=== PATIENT | male | born 1975 | race Caucasian/White ===

== ENCOUNTER 2018-10-16 14:53 | Observation (INO) | payer OTHER, SELFPAY ==
--- NOTE | 2018-10-16 18:01 | PDOC.FPRHP ---
- History of Present Illness Chief Complaint: Exposure History of Present Illness: Mr. 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 He began walking and felt dizzy so sat down and was attended to by other employees. The only chemical he knows that is in the washing machine is chlorine, he does not believe this was in the air he inhaled. he has had no additional symptoms since this episode. transferred from outside ED to [facility] ED Course: CBC, CMP, CK, CXR outside ER: mag, duoneb, solumedrol ASA SJER: Duoneb - Allergies/Adverse Reactions Allergies Allergy/AdvReac Type Severity Reaction Status Date / Time succinylcholine Allergy Severe Verified 10/17/18 05:40 Penicillins Allergy Unknown Verified 10/17/18 05:40 - Home Medications Medication Instructions Recorded Confirmed Type No Known 10/17/18 10/17/18 History - History PMHx: none PSHx: Appendectomy, umbilical hernia repair FHx: CML, COPD Social: 10 pack year smoking history, current smokeless tobacco user - Review of Systems General: denies: fever/chills, weight/appetite/sleep changes Eyes: denies: eye pain, vision changes ENT: denies: nasal congestion, rhinorrhea Respiratory: reports: shortness of breath. denies: cough, congestion Cardiovascular: reports: chest pain. denies: palpitation, edema Gastrointestinal: denies: nausea, vomiting, diarrhea Skin: denies: rashes, lesions Musculoskeletal: reports: pain, tenderness Neurological: denies: numbness, syncope - Vital signs BP: 110/57 HR: 88 RR: 20 Tmax: 98.2 Pox: 97% on 3L Wt: 117.93kg - Physical Exam Constitutional: NAD HEENT: normocephalic and atraumatic, grossly normal vision, grossly normal hearing, MMM Neck: supple, trachea midline Chest: no-tender to palpation Heart: RRR, normal S1/S2, no murmurs/rubs/gallops Lungs: CTAB, no respiratory distress, good air movement Abdomen: soft, non-tender, bowel sounds present Musculoskeletal: normal structure, ROM grossly normal Neurological: no focal deficit Skin: no rash/lesions, good turgor Heme/Lymphatic: no unusual bruising or bleeding Psychiatric: normal mood and affect FMR H&P: Results - Labs Result Diagrams: 10/17/18 04:05 10/17/18 04:05 FMR H&P: A/P - Problem List (1) Chlorine gas exposure Current Visit: Yes Status: Acute Code(s): Z77.098 - CONTACT W AND EXPSR TO OTH HAZARD, CHIEFLY NONMED, CHEMICALS (2) Elevated CK Current Visit: Yes Status: Acute (3) Musculoskeletal pain Current Visit: Yes Status: Acute Code(s): M79.18 - [place], OTHER SITE - Plan Chlorine gas exposure - possible, but unlikely, contact poison control - encourage PO hydration - s/p oral steroids and duonebs - duonebs prn for SOB - continuous O2 monitoring, O2 prn for saturation below 92% Elevated CK - mildly elevated at 227 on admission - monitor, recheck in AM Musculoskeletal pain - hx of pain 2/2 injuries - ibuprofen PRN Code: full ppx: lovenox Disposition/LOS: observation on medical, contact poison control for further information FMR H&P: Upper Level - Pertinent history 43 y/o M presents for SOB. States he was working today and inhaled gas while using the washing machine. The machine is set up to have oxygen and chlorine for the washing. He is unsure if chlorine was in the gas but cannot rule it out. He became immediately SOB and felt lightheaded and co-workers called EMS. States he has slight chest pain on L side with deep inspirations. Does also admit to feeling much better since arriving into the ED. - Pertinent findings Physical Exam: GEN: NAD lying in hospital bed CARDIO: RRR, No MRG LUNGS: CTAB, No wheezes, rales, ronchi, no chest ttp NEURO: Alert and oriented x4, no focal deficits, strength and sensation preserved in all extremities. GI: no ttp. No R/G RECTAL: No fissures/hemorrhoids observed. Blood in rectal vault is red and runs down legs. MSK: No LE edema - Plan Date/Time: 10/16/18 [id number] Augustine Perez, have evaluated this patient and agree with findings/plan as outlined by contracts intern resident. Pertinent changes/additions are listed here. Assessment/Plan: 1. Pneumonitis 2/2 possible Chlorine gas exposure. CXR WNL and VSS on 2L O2. Has some pleuritic chest pain we will give NSAIDS for. No s/s of respiratory distress. Will monitor overnight per poison control. 2. Hx/o LE surgery and pain: no acute issues DISPO: Anticipate discharge in 1-2 days LMWH for DVT ppx Attending Addendum - Attending Addendum Date/Time: 10/17/18 0708 I personally evaluated the patient and discussed the management with Dr. French and Dr Lara yesterday evening. I agree with the History, Examination, Assessment and Plan documented above with any addition or exceptions noted below.
--- NOTE | 2018-10-16 20:54 | PDOC.EVN ---
Event Note - Event Note Event Note: Date/Time: 10/16/182052 I personally evaluated the patient and discussed the management with Dr. Lara and Dr French. I agree with the History, Examination, Assessment and Plan as discussed. H&P pending.
[2018-10-17] MEDS ORDERED: Sodium Chloride 0.9% 1,000 ML IV SCH (01:00)
[2018-10-17] MEDS ORDERED: Ibuprofen 600 MG TAB PO PRN (02:14)
[2018-10-17 02:57] VITALS: BMI 37.3
[2018-10-17] MEDS: traMADol HCl 50 MG TAB PO SCH ×2 (04:58→08:37)
[2018-10-17 05:00] LABS: #Lymphocytes 1.2 thou/uL (1.20-3.40); #Neutrophils 8.8 thou/uL (1.40-6.50); %Basophils 0.1 % (0.0-1.0); %Eosinophils 0.2 % (0.0-10.0); %Lymphocytes 11.1 % (21.0-51.0); %Monocytes 9.1 % (0.0-10.0); %Neutrophils 79.6 % (42.0-75.0); Hemoglobin 14.4 g/dL (14.0-18.0); Mean Corpuscular HGB CONC 34.3 g/dL (32.0-36.0); Mean Corpuscular Volume 96.1 fL (78.0-98.0); Mean Platelet Volume 7.4 fL (7.4-10.4); Platelet Count 314 thou/uL (130-400); RBC Distribution Width 12.7 % (11.5-14.5); Red Blood Cell (RBC) Count 4.35 mill/uL (4.70-6.10)
[2018-10-17 05:19] LABS: ALT (SGPT) 19 U/L (8-55); AST (SGOT) 13 U/L (5-34); Albumin 3.9 g/dL (3.5-5.0); Alkaline Phosphatase 63 U/L (40-150); Anion Gap 11 mmol/L (10-20); BUN (Urea Nitrogen) 10 mg/dL (8.9-20.6); Bilirubin, Total 0.7 mg/dL (0.2-1.2); CK (CPK) 138 U/L (30-200); Calc. Creatinine Clearance 179 mL/min (70-130); Calcium 9.3 mg/dL (7.8-10.44); Carbon Dioxide 26 mmol/L (22-29); Chloride 106 mmol/L (98-107); Estimated GFR-MDRD 90; Glucose 141 mg/dL (70-105); Potassium 4.1 mmol/L (3.5-5.1); Protein, Total 6.9 g/dL (6.0-8.3); Sodium 139 mmol/L (136-145)
--- NOTE | 2018-10-17 05:40 | PDOC.FM ---
- Subjective Subjective: Pt states he did well overnight. He did complain of some back pain but believes it is from being cramped. He denies SOB, chest pain, nausea, or vomiting. He did report that the machine he works with was an [place] machine which fits the story better. - Objective MAR Reviewed: Yes Vital Signs & Weight: Vital Signs (12 hours) Temp Pulse Resp BP Pulse Ox 10/17/18 02:58 97.9 F 59 L 20 108/55 L 96 10/17/18 01:54 98.1 F 70 22 H 118/62 94 L Weight Weight 121.291 kg I&O: 10/15/18 10/16/18 10/17/18 06:59 06:59 06:59 Intake Total 102 Balance 102 Result Diagrams: 10/17/18 04:05 10/17/18 04:05 <Stephane Gonzales - Last Filed: 10/17/18 08:24> - Objective Vital Signs & Weight: Vital Signs (12 hours) Temp Pulse Resp BP Pulse Ox 10/17/18 08:08 96 10/17/18 07:32 98.2 F 61 18 126/67 95 10/17/18 02:58 97.9 F 59 L 20 108/55 L 96 10/17/18 01:54 98.1 F 70 22 H 118/62 94 L Weight Weight 121.291 kg I&O: 10/16/18 10/17/18 10/18/18 06:59 06:59 06:59 Intake Total 392 Output Total 300 Balance 92 Result Diagrams: 10/17/18 04:05 10/17/18 04:05 <Natanael Aguilar - Last Filed: 10/17/18 10:24> Phys Exam - Physical Examination Constitutional: NAD HEENT: moist MMs Neck: full ROM Respiratory: no wheezing, clear to auscultation bilateral Cardiovascular: RRR, no significant murmur Gastrointestinal: soft, non-tender, no distention, positive bowel sounds Musculoskeletal: no edema, pulses present Neurological: moves all 4 limbs Psychiatric: normal affect, A&O x 3 Skin: cap refill <2 seconds <Stephane Gonzales - Last Filed: 10/17/18 08:24> Dx/Plan (1) Chlorine gas exposure Code(s): Z77.098 - CONTACT W AND EXPSR TO OTH HAZARD, CHIEFLY NONMED, CHEMICALS Status: Acute (2) Elevated CK Status: Acute (3) Musculoskeletal pain Code(s): M79.18 - [place], OTHER SITE Status: Acute - Plan Plan: This is a 43 yo otherwise healthy male Possible chlorine gas exposure vs. [place] exposure -Poison control contacted yesterday -Encourage PO fluids -Duonebs PRN for SOB -Pt has improving O2 sats and respiratory status Elevated CK, resolved MSK pain 2/2 previous injuries -Ibuprofen PRN and tramadol HARJINDER Pt will likely go home if he continues to improve <Stephane Gonzales - Last Filed: 10/17/18 08:24> Attending Addendum - Attending Addendum Date/Time: 10/17/18 1020 I personally evaluated the patient and discussed the management with Dr. Gonzales I agree with the History, Examination, Assessment and Plan documented above with any addition or exceptions noted below. 43M with possible chemical exposure. Maintaining oxygen saturations overnight on room air. Vital signs have remained normal. Poison control recommends observation. Morning laboratory studies are normal. Discharge home this afternoon. <Natanael Aguilar - Last Filed: 10/17/18 10:24>
[2018-10-17] MEDS ORDERED: Enoxaparin Sodium 40 MG/0.4 ML SYRINGE SC SCH (09:00)
--- NOTE | 2018-10-17 09:10 | RAD ---
PA AND LATERAL CHEST RADIOGRAPH: Date: 10-17-18 History: Follow up evaluation. Dyspnea. Comparison: 10-16-18 FINDINGS: There has been interval development of patchy increased density in the left midlung zone compared to the prior study which could be related to either atelectasis or developing area of pneumonitis. Faint nodular density overlies the lateral right midlung zone. Lungs are otherwise clear. Cardiac silhouet te is at the upper limits of normal. Pulmonary vasculature is within normal limits. IMPRESSION: 1. Faint nodular density projecting over the lateral right midlung zone with associated linear densit ies. This could be related to an area of mild scarring, but short interval follow up examination is r ecommended. 2. Interval development of patchy density in the left midlung zone which could be related to either a telectasis or developing area of pneumonitis. Follow up to resolution is recommended. POS: JUANA
[2018-10-17 11:41] VITALS: BP 128/62; TEMP 97.9
--- NOTE | 2018-10-18 15:47 | DIS ---
DATE OF ADMISSION: 10/16/2018 DATE OF DISCHARGE: 10/17/2018 RESIDENT: Stephane Gonzales DO. ADMITTING ATTENDING: Cale Rubio MD DISCHARGE ATTENDING: Natanael Aguilar MD. CONSULTS: None. PROCEDURES PERFORMED: Chest x-ray shows faint nodular density projecting over the with associated linear densities, interval development of patchy densities over the left mid lung. This could relate to either atelectasis or developing area of pneumonitis. PRIMARY DIAGNOSIS: Pneumonitis, likely secondary to chlorine gas exposure or ozone exposure. SECONDARY DIAGNOSIS: Musculoskeletal pain. DISCHARGE MEDICATIONS: Ibuprofen 600 mg p.o. q.6 DISCONTINUED MEDICATIONS: None. BRIEF HISTORY OF PRESENT ILLNESS/HOSPITAL COURSE: This is a 43-year-old male with past medical history as above, who presented to the ER with episodes of shortness of breath at work. 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 The patient states that possibly it could be chlorine, also states that they work with ozone machine leading to those two chemicals is the likely problem. He felt dizzy and had to sit down. The patient was seen in the ER concerned for exposure. On admission, the patient was at 97% on 3L of nasal cannula. The patient tolerated and improved overnight with DuoNeb scheduled and improved respiratory status continued. At the time of discharge the patient had no complaints regarding breathing or chest pain. DISPOSITION: Stable. DISCHARGE INSTRUCTIONS: 1. Location: Home. 2. Diet: Regular. 3. Activity: As tolerated. 4. Follow up with primary care physician in 1 to 2 weeks. Job ID: [id number]
== END 2018-10-17 12:23 | disposition home or self-care (01) ==
LOC: ERS 14:53 → INTOOBSV 17:31 → ERHOLD 17:31 → 2SW 10-17 02:03
PROVIDERS: ADMIT Family Medicine; ATTEND Family Medicine
DX: J18.9 Pneumonia, unspecified organism (principal); R74.8 Abnormal levels of other serum enzymes; M79.10 Myalgia, unspecified site; F17.290 Nicotine dependence, other tobacco product, uncomplicated; Z88.8 Allergy status to other drugs, medicaments and biological substances; Z88.0 Allergy status to penicillin; Z90.49 Acquired absence of other specified parts of digestive tract; Z98.890 Other specified postprocedural states
CPT/HCPCS: 36415; 71046; 80053; 82550; 85025; 94640; 96360; 96372; G0378; J1650; J7620

== ENCOUNTER 2024-04-02 16:33 | Outpatient (CLI) | payer BC ==
[2024-04-02 17:16] LABS: #Basophils 0.06 10x3/uL (0.0-0.2); #Eosinphils 0.32 10x3/uL (0.0-0.5); #Neutrophils 3.31 10x3/uL (1.5-8.4); %Eosinophils 5.3 % (0.0-6.0); %Lymphocytes 28.2 % (18.0-47.0); %Neutrophils 54.8 % (40.0-75.0); Hematocrit 41.7 % (38.8-50.0); Mean Corpuscular HGB CONC 33.6 g/dL (32.0-36.0); Mean Corpuscular Hemoglobin 31.9 pg (27.0-33.0); Mean Platelet Volume 9.9 fl (7.4-10.4); Platelet Count 264 10x3/uL (150-450); RBC Distribution Width 13.7 % (11.5-14.5); Red Blood Cell (RBC) Count 4.39 10x6/uL (4.32-5.72)
[2024-04-02 17:44] LABS: Anion Gap 13 mmol/L (10-20); BUN (Urea Nitrogen) 11 mg/dL (8.9-20.6); Calc. Creatinine Clearance 0 mL/min (70-130); Carbon Dioxide 26 mmol/L (22-29); Chloride 106 mmol/L (98-107); Estimated GFR 93; Glucose 118 mg/dL (70-105); Potassium 3.8 mmol/L (3.5-5.1); Sodium 141 mmol/L (136-145)
== END 2024-04-02 16:34 | disposition home or self-care (01) ==
LOC: LABBT 16:33
PROVIDERS: ATTEND Orthopaedic Surgery
DX: Z01.818 Encounter for other preprocedural examination (principal); S83.272A Complex tear of lateral meniscus, current injury, left knee, initial encounter; S83.242D Other tear of medial meniscus, current injury, left knee, subsequent encounter
CPT/HCPCS: 80048; 85025; 93005; 93010